=== PATIENT | male | born 2000 | race African-American/Black ===

== ENCOUNTER 2023-08-28 17:06 | Outpatient (CLI) | payer OTHER, SELFPAY ==
[2023-08-28 18:12] LABS: Influenza A QL RT-PCR Positive (Negative); Influenza B QL RT-PCR Negative (Negative); SARS-CoV-2 RNA PCR Negative (Negative)
== END 2023-08-28 17:07 | disposition home or self-care (01) ==
PROVIDERS: PCP Emergency Medicine; Visit Provider Emergency Medicine
DX: B34.9 Viral infection, unspecified (principal); Z20.822 Contact with and (suspected) exposure to COVID-19
CPT/HCPCS: 87636